=== PATIENT | female | born 1960 | race Caucasian/White ===

== ENCOUNTER 2020-01-10 06:39 | Day surgery (SDC) | payer SELFPAY ==
[~2020-01-10] VITALS: Ht 162.6 cm; Wt 62.1 kg
[~2020-01-10 06:39] MED LIST: ALBUTEROL108 MCG/AC IN; SERTRALINE HCL25 MG PO; ZOLPIDEM5 MG PO; ZYRTEC10 MG PO
[2020-01-10 09:36] VITALS: BP 157/64
== END 2020-01-10 09:50 | disposition home or self-care (01) | DRG 379 ==
LOC: ENDO 06:39 → ORM 08:00 → ENDO 08:00
PROVIDERS: ATTEND Surgery
PROC: 0DB78ZX Excision of Stomach, Pylorus, Via Natural or Artificial Opening Endoscopic, Diagnostic (ICD-10-PCS; principal; 2020-01-10)
PROC: 0DBH8ZX Excision of Cecum, Via Natural or Artificial Opening Endoscopic, Diagnostic (ICD-10-PCS; 2020-01-10)
DX: K29.51 Unspecified chronic gastritis with bleeding (principal); K44.9 Diaphragmatic hernia without obstruction or gangrene; D12.0 Benign neoplasm of cecum; Z11.59 Encounter for screening for other viral diseases